=== PATIENT | male | born 1955 | race Hispanic/Latino ===

== ENCOUNTER 2022-07-10 09:56 | Day surgery (SDC) | payer OTHER ==
[2022-07-08 15:57] LABS: BASOPHILS % (AUTO) 0.6 % (0.0-5.0); EOSINOPHILS % (AUTO) 1.5 % (0.0-8.0); HEMATOCRIT 53.8 % (42-54); LYMPHOCYTES % (AUTO) 14.1 % (21.0-51.0); MEAN CORPUSCULAR HEMOGLOBIN 29.6 pg (27.0-33.0); MEAN CORPUSCULAR HGB CONC 32.9 g/dL (32.0-36.0); MEAN CORPUSCULAR VOLUME 90.1 fL (79-99); MONOCYTES % (AUTO) 8.9 % (3.0-13.0); NEUTROPHILS % (AUTO) 74.4 % (40.0-77.0); PLATELET COUNT (AUTO) 241 K/uL (130-400); RED BLOOD CELL COUNT(AUTO) 5.97 MIL/uL (4.50-6.20); RED CELL DISTRIBUTION WIDTH 14.3 % (11.0-15.5)
[2022-07-08 15:59] LABS: APPEARANCE,URINE CLEAR (CLEAR); BILIRUBIN,URINE NEGATIVE (NEGATIVE); COLOR,URINE YELLOW (YELLOW); GLUCOSE, URINE (UA) NEGATIVE (NEGATIVE); KETONES,URINE NEGATIVE (NEGATIVE); LEUKOCYTE ESTERASE ,URINE NEGATIVE (NEGATIVE); NITRATE,URINE NEGATIVE (NEGATIVE); OCCULT BLOOD,URINE TRACE-INTACT (NEGATIVE); PROTEIN,URINE NEGATIVE (NEGATIVE); UROBILINOGEN,URINE 0.2 mg/dL (0.2-1.0)
[2022-07-08 16:05] LABS: CREATININE 1.2 mg/dL (0.5-1.5); POTASSIUM 3.7 mmol/L (3.5-5.1)
[2022-07-08 16:08] LABS: INR 0.93 (0.85-1.15); PROTHROMBIN TIME 10.1 SEC (9.6-11.6)
[2022-07-08 16:09] LABS: PARTIAL THROMBOPLASTIN TIME 27.8 SEC (26.3-35.5)
[2022-07-08 16:38] LABS: BACTERIA,URINE None Seen /HPF (None Seen); SQUAMOUS EPITHELIAL CELL,UR Rare /HPF (0-2); WBC,URINE 0-1 /HPF (0-1)
[2022-07-09 11:19] VITALS: BP 132/65
[~2022-07-10] VITALS: Ht 162.6 cm; Wt 67.7 kg
[2022-07-10] VITALS (8 sets, daily range): BP systolic 93–137; BP diastolic 54–68
[~2022-07-10 09:56] MED LIST: AEC81 PO; LOSA1TAB37 PO; METO50TA18 PO; PRAV10TA39 PO
[2022-07-10 10:49] LABS: EOSINOPHILS % (AUTO) 2.1 % (0.0-8.0); HEMATOCRIT 50.8 % (42-54); LYMPHOCYTES % (AUTO) 18.5 % (21.0-51.0); MEAN CORPUSCULAR HEMOGLOBIN 29.7 pg (27.0-33.0); MEAN CORPUSCULAR HGB CONC 33.1 g/dL (32.0-36.0); MEAN CORPUSCULAR VOLUME 89.9 fL (79-99); MONOCYTES % (AUTO) 10.2 % (3.0-13.0); NEUTROPHILS % (AUTO) 67.8 % (40.0-77.0); PLATELET COUNT (AUTO) 245 K/uL (130-400); RED BLOOD CELL COUNT(AUTO) 5.65 MIL/uL (4.50-6.20); RED CELL DISTRIBUTION WIDTH 14.4 % (11.0-15.5); WHITE BLOOD COUNT (AUTO) 9.4 K/uL (4.8-10.8)
[2022-07-10] MEDS ORDERED: 0.9%NACL 1000ML 1,000 ML IV ONE (11:48)
[2022-07-10] MEDS ORDERED: CEFAZOLIN SODIUM 1 GM VIAL ONE (12:30)
[2022-07-10] MEDS ORDERED: BUPIVACAINE/PF 0.25% 30ML VIAL IJ ONE (12:30)
[2022-07-10] MEDS ORDERED: LIDOCAINE HCL 1% 20 ML VIAL ONE (12:30)
[2022-07-10] MEDS ORDERED: DiphenhydrAMINE HCL 50 MG/ML VIAL ONE (12:49)
[2022-07-10] MEDS ORDERED: FENTANYL CITRATE PF 50 MCG/1 ML 2ML VIAL ONE (13:28)
[2022-07-10] MEDS ORDERED: MIDAZOLAM HCL 1 MG/ML 2ML VIAL ONE (13:28)
[2022-07-10] MEDS ORDERED: OCTYL 2-CYANOACRYLATE 1 EACH TP ONE (13:51)
[2022-07-10] MEDS ORDERED: ACETAMINOPHEN WITH CODEINE 1 TAB TAB PO PRN ×2 (14:30)
[2022-07-10] MEDS ORDERED: ONDANSETRON 4MG INJ IV PRN (14:30)
== END 2022-07-10 17:40 | disposition home or self-care (01) ==
LOC: DAH 09:56
PROVIDERS: ATTEND Internal Medicine Interventional Cardiology
DX: Z45.010 Encounter for checking and testing of cardiac pacemaker pulse generator [battery] (principal); I44.2 Atrioventricular block, complete; I10 Essential (primary) hypertension; E78.5 Hyperlipidemia, unspecified; F17.200 Nicotine dependence, unspecified, uncomplicated; Z79.82 Long term (current) use of aspirin; Z79.01 Long term (current) use of anticoagulants; Z79.899 Other long term (current) drug therapy; Z82.49 Family history of ischemic heart disease and other diseases of the circulatory system; Z98.890 Other specified postprocedural states
CPT/HCPCS: 80048; 85025 ×2; 85610; 85730; 81001; 36415 ×2; 93005; 33228; 71045; C1785; J1200; J3010; J0690; J7030; J3490; J2250; A4215; A4222; A4221; A4663; A4216; A4606; A4223 ×3; 99156; 99157